=== PATIENT | male | born 1955 | race Caucasian/White ===

== ENCOUNTER → 2019-05-06 11:42 | Outpatient (CLI) | payer MEDICARE, MEDICAID, SELFPAY ==
--- NOTE | 2019-05-06 14:06 | NEURO ---
NCS and/or EMG Patient Report Ordering Doctor: Bobby Saleh DATE OF SERVICE: 05/06/19 Jean-Paul Cuellar is a 63-year-old male presents for electrodiagnostic testing of the lower limbs. He reports pain in both feet. Electrodiagnostic findings: Peroneal motor nerve demonstrates normal distal latency, amplitude and conduction velocity bilaterally. Normal tibial motor response bilaterally sensory responses are within normal limits F waves are normal. Borderline prolonged H reflex bilaterally. On needle EMG, all muscles tested in the lower limbs showed no evidence of denervation with normal motor unit action potentials. Electrodiagnostic impression: This is a normal electrodiagnostic study in the lower limbs. There is no electrodiagnostic evidence for peripheral neuropathy, including tarsal tunnel syndrome. There is no electrodiagnostic evidence for lumbosacral radiculopathy.
== END ==
PROVIDERS: Referring Provider Podiatrist; Visit Provider Podiatrist
DX: G62.9 Polyneuropathy, unspecified (principal); M54.10 Radiculopathy, site unspecified; M79.672 Pain in left foot; M79.671 Pain in right foot
CPT/HCPCS: 95886; 95912

== ENCOUNTER → 2021-04-10 06:33 | Outpatient (CLI) | payer MEDICARE, MEDICAID, SELFPAY ==
--- NOTE | 2021-04-10 06:34 | CT_ITS ---
STUDY: CT MAXILLOFACIAL SINUSES REASON FOR EXAM: Male, 65 years old. SINUSITIS RADIATION DOSAGE (If Supplied By Facility): CTDIvol = ( 33.06 ) mGy, DLP = ( 784.26 ) mGycm TECHNIQUE: The patient was scanned in a multi detector CT scanner. High resolution axial imaging was performed without the administration of intravenous contrast material. Sagittal and coronal images were reconstructed. Individualized dose optimization techniques were used for this CT. COMPARISON: None. FINDINGS: FRONTAL SINUSES: Mucosal thickening of the frontal sinuses. ETHMOIDAL SINUSES: Partial opacification of the ethmoid sinuses bilaterally. MAXILLARY SINUSES: There is opacification of both maxillary sinuses. SPHENOIDAL SINUSES: Normal aeration, without mucosal inflammatory disease. The ostiomeatal complexes is compromised due to the mucosal hypertrophy. Normal bilateral middle turbinates. There is hypertrophy of the left inferior nasal turbinate. There is a left sided nasal septal deviation with a left sided nasal septal spur. There is patency of the bilateral nasal airways. The visualized osseous structures are normal. The visualized bilateral orbital contents are normal. CT/Sinus/Facial Bone IMPRESSION: Opacification of both maxillary sinuses with the compromise of the ostiomeatal complex is bilaterally due to mucosal hypertrophy. Partial opacification of the ethmoid sinuses as well as mucosal thickening of the frontal sinus. Nasal septal deviation towards the left side of the midline. Electronically Signed: Delmar Madera MD at 9:23 EDT , Service support ,
== END ==
PROVIDERS: PCP Nurse Practitioner Family; Referring Provider Otolaryngology; Visit Provider Otolaryngology
DX: J32.8 Other chronic sinusitis (principal)
CPT/HCPCS: 70486

== ENCOUNTER → 2021-05-12 16:45 | Outpatient (CLI) | payer MEDICARE, MEDICAID, SELFPAY | PROVIDERS: PCP Nurse Practitioner Family; Visit Provider Otolaryngology | DX: Z03.818 Encounter for observation for suspected exposure to other biological agents ruled out (principal) | CPT/HCPCS: 87635; U0005; U0003 ==

== ENCOUNTER 2022-10-23 09:23 | Emergency (ER) | payer MEDICARE, MEDICAID, SELFPAY ==
[2022-10-23 09:24] VITALS: BP 132/59; PULSE 128; RESP 18; TEMP 36.1; O2SAT 98; BMI 36.4
--- NOTE | 2022-10-23 10:20 | CT_ITS ---
STUDY: CT ABDOMEN AND PELVIS WITHOUT CONTRAST REASON FOR EXAM: Male, 66 years old. Right flank pain. RADIATION DOSAGE (If Supplied By Facility): CTDIvol = ( 22.06 ) mGy, DLP = ( 1190.40 ) mGycm TECHNIQUE: Transaxial images were obtained from the dome of the diaphragm to the symphysis pubis without oral contrast, and without intravenous contrast. Sagittal and coronal images were reconstructed. Individualized dose optimization techniques were used for this CT. COMPARISON: None. FINDINGS: The visualized lung bases are unremarkable. Coronary artery calcification. There is decreased attenuation of the liver consistent with steatosis. Normal gallbladder and extrahepatic biliary system. Normal spleen. Normal pancreas. Normal bilateral adrenal glands. Normal right kidney. Normal left kidney. Normal visualized stomach. Normal small intestine. There are scattered colonic diverticula consistent with diverticulosis. The appendix is visualized and appears normal. There is scattered atherosclerotic calcification of the abdominal aorta, without a demonstrated aneurysm. Normal inferior vena cava. Normal retroperitoneum. Normal urinary bladder. There are prostatic calcifications. Normal abdominal wall. There are mild degenerative changes of the visualized lumbar spine. CT/Abdomen/Pelvis without Cont IMPRESSION: Fatty infiltration of the liver. Electronically Signed: Delmar Madera MD at 12:32 EST ,
[2022-10-23] MEDS: 0.9% Normal Saline 1,000 ML 1000 ML IV (10:35)
[2022-10-23 10:41] LABS: Bacteria 0 SEEN /hpf (None Seen); Mucous, Urine 0 SEEN /hpf (<or=2+); Red Blood Cells-Urine 0 SEEN /hpf (0-5); Squamous Epithelial Cells - UA 0 SEEN /hpf (0-5); White Blood Cells 0 SEEN /hpf (0-5)
[2022-10-23 10:43] LABS: Absolute Lymphocyte Count 2.18 X10^3/uL (0.83-4.51); Absolute Neutrophil Count 4.4 X10^3/uL (2.0-7.7); Basophil# 0.07 X10^3/uL; Basophil% 0.9 % (0-1); Eosinophil# 0.46 X10^3/uL; Hematocrit 47.1 % (40-54); Hemoglobin 16.1 g/dL (13.0-16.5); Lymphocyte # 2.18 X10^3/ul (0.83-4.51); Lymphocyte % 28.4 % (19-41); Mean Corp Hgb Conc 34.2 g/dL (32-36); Mean Corpuscular Hgb 31.8 pg (27.0-32.0); Mean Corpuscular Volume 92.9 fL (80-94); Mean Platelet Vol. 9.7 fl (6.2-12.0); Monocyte# 0.53 X10^3/uL; Monocyte% 6.9 % (0-10); NRBC Flagged by Analyzer 0 % (0-5); Neutrophil % 57.4 % (47-70); Platelet Count 189 K/mm3 (150-450); RBC Distribution Width CV 15.2 % (11.6-14.6); RBC Distribution Width SD 51.4 fl (35.1-43.9); Red Blood Count 5.07 M/mm3 (4.6-6.2); White Blood Count 7.7 K/mm3 (4.4-11.0)
[2022-10-23 10:45] LABS: Color, Urine Yellow (Yellow); Glucose, Dipstick Normal (Normal); Ketone-Dipstick Negative (Negative); Leukocyte Esterase-Dipstick Negative /ul (Negative); Nitrite-Dipstick Negative (Negative); Occult Blood-Urine Negative /ul (Negative); Protein-Dipstick 15 mg/dl (Negative); Urine Bilirubin Dipstick Negative (Negative); Urine Clarity Clear (Clear); Urine Urobilinogen Normal (Normal)
[2022-10-23 10:51] LABS: AST(SGOT) 37 U/L (15-37); Alanine Aminotransfer ALT/SGPT 47 U/L (16-61); Albumin, Serum 4.1 g/dL (3.2-5.0); Alkaline Phosphatase 62 U/L (45-117); Anion Gap 8 (5-15); BUN 22 mg/dL (7-18); BUN/Creat Ratio 19.3 RATIO (10-20); Calcium,Total 9.6 mg/dL (8.5-10.1); Chloride 106 mmol/L (98-107); Creatinine, Serum 1.14 mg/dL (0.70-1.30); EST Glomerular Filtration Rate 68 mL/min (>60); Est Glom Filt Rate - Afr Amer 82 mL/min (>60); Estimated Creatinine Clearance 66.05 ml/min; Globulin 4.2 g/dL (2.2-4.2); Glucose 141 mg/dL (74-106); Lipase 231 U/L (73-393); Protein, Total 8.3 g/dL (6.4-8.2); Sodium Level 139 mmol/L (136-145)
[2022-10-23 11:51] VITALS: BP 117/63; PULSE 74; RESP 14; O2SAT 98
--- NOTE | 2022-10-23 12:08 | EDS_ITS ---
HPI History of Present Illness Chief Complaint: Flank Pain Informant: patient Onset/Context/Timing Onset: Weeks (1) Context: Gradual Onset Timing: Continuous Quality: Stabbing Location: Right lower abdomen and right flank Worsened by: Movement, coughing Relieved by: Certain positions Narrative Narrative: This with right-sided abdominal and flank pain that began 1 week ago. Patient states it began gradually. Patient states it has been constant for the past week. Patient describes the pain as stabbing. Patient states the pain is worse with certain movements and with coughing. Patient states it is better with certain positions. Patient denies any fevers or chills. Patient admits to nausea but denies any vomiting. Patient denies any diarrhea, melena, or hematochezia. Patient denies any dysuria or hematuria. PFSH PFS Medical History Breast mass in male Diabetes mellitus Essential (primary) hypertension Gout Gynecomastia, male Hyperlipidemia Obesity Tobacco abuse Home Medications allopurinol 300 mg tablet 300 mg PO DAILY 03/30/22 [History Last Taken Unknown] lisinopril 20 mg-hydrochlorothiazide 12.5 mg tablet 1 tab PO DAILY 03/30/22 [History Last Taken Unknown] Allergy/AdvReac Type Severity Reaction Status Date / Time [id number] Reductase AdvReac Unknown bilateral Verified 04/04/22 14:30 Inhibitor hand pain Family History Father CAD (coronary artery disease), Onset Age: 49 CABG Myocardial infarction, Onset Age: 49 Other Heart disease Social History Smoking Status: Current some day smoker tobacco type: cigarettes alcohol intake: current alcohol intake frequency: a few times a week Alcohol type: hard liquor caffeine: Yes Type: coffee Number of servings: 3 ROS ROS ED Constitutional Constitutional ED: Denies chills or fever(s) Eyes Eyes: Denies blurry vision or change in vision ENT ENT ED: Denies rhinorrhea or sore throat Cardiovascular Cardiovascular: Denies chest pain or palpitations Respiratory/Chest Respiratory/Chest: Denies cough or dyspnea Gastrointestinal Gastrointestinal: Reports abdominal pain and nausea; Denies vomiting Genitourinary Genitourinary ED: Denies dysuria or hematuria Musculoskeletal Musculoskeletal: Reports back pain; Denies neck pain Integumentary Denies abscess or rash Neurologic Neurologic: Denies headache(s) or weakness Allergic/Immunologic Allergic/Immunologic ED: Denies mouth swelling or urticaria EXAM Physical Exam Const Vital Signs: 10/23/22 09:24 10/23/22 09:54 10/23/22 11:51 Temperature 96.9 F L Temperature Source Temporal Pulse Rate 128 H 74 Respiratory Rate 18 14 Respiratory Pattern Normal Blood Pressure 132/59 H 117/63 Blood Pressure Mean 83 81 Pulse Ox 98 98 Oxygen Delivery Method Room Air Room Air 10/23/22 13:15 Temperature Temperature Source Pulse Rate 68 Respiratory Rate 18 Respiratory Pattern Blood Pressure 112/71 Blood Pressure Mean 84 Pulse Ox 98 Oxygen Delivery Method Positive well nourished and well developed General Appearance ED: well developed HEENT Reports moist mucous membranes Neck supple and no JVD Resp normal respiratory effort and clear to auscultation bilaterally Cardio regular rate, regular rhythm and no murmurs GI normal to inspection, nondistended, normoactive bowel sounds Palpation: soft and tender RLQ (Mild); Negative for guarding or rebound tenderness present Back/Spine General Back: CVA tenderness right Extremity normal to inspection General Extremety ED: Negative for edema or tenderness General Extremity: Negative for edema Neuro oriented x3, CN's II-XII intact bilaterally and no sensory deficits noted Sensorium / Orientation: alert Motor Exam: strength 5/5 throughout Psych mental status grossly normal Skin no rashes or lesions noted MDM MDM MDM Narrative Medical decision making narrative: Differential diagnose includes appendicitis, right ureteral calculus, mesenteric adenitis, colitis, pancreatitis, pyelonephritis, and gastroenteritis. CBC will be obtained to assess for leukocytosis and anemia. Comprehensive metabolic profile will be obtained to assess for electrolyte abnormality, renal function, and hepatic function. Lipase will be obtained to assess for pancreatitis. Urinalysis will be obtained to assess for urinary tract infection and hematuria. CT scan of the abdomen pelvis will be obtained to assess for appendicitis and ureteral calculus. Lab Data Attestation: I reviewed the patient's lab results. Lab results narrative: CBC was reviewed and was within normal limits. Comprehensive metabolic profile was reviewed and was essentially within normal limits. Lipase was reviewed and was normal. Urinalysis was reviewed and does not show any evidence of urinary tract infection or hematuria. Labs: Laboratory Results - last 24 hr 10/23/22 10/23/22 10/23/22 10:10 10:10 10:30 WBC 7.7 RBC 5.07 Hgb 16.1 Hct 47.1 MCV 92.9 MCH 31.8 MCHC 34.2 RDW Std Deviation 51.4 H RDW Coeff of Jorge Luis 15.2 H Plt Count 189 MPV 9.7 Immature Gran % (Auto) 0.400 Neut % (Auto) 57.4 Lymph % (Auto) 28.4 [place] % (Auto) 6.9 Eos % (Auto) 6.0 H Baso % (Auto) 0.9 Absolute Neuts (auto) 4.4 Absolute Lymphs (auto) 2.18 Nucleated RBC % 0 Sodium 139 Potassium 4.0 Chloride 106 Carbon Dioxide 25.0 Anion Gap 8 BUN 22 H Creatinine 1.14 Estim Creat Clear Calc 66.05 Est GFR (MDRD) Af Amer 82 Est GFR (MDRD) Non-Af 68 BUN/Creatinine Ratio 19.3 Glucose 141 H Calcium 9.6 Total Bilirubin 0.60 AST 37 ALT 47 Alkaline Phosphatase 62 Total Protein 8.3 H Albumin 4.1 Globulin 4.2 Albumin/Globulin Ratio 1.0 Lipase 231 Urine Color Yellow Urine Clarity Clear Urine pH 6.0 Ur Specific [place] 1.020 Urine Protein 15 H Urine Glucose (UA) Normal Urine Ketones Negative Urine Occult Blood Negative Urine Nitrite Negative Urine Bilirubin Negative Urine Urobilinogen Normal Ur Leukocyte Esterase Negative Urine RBC 0 SEEN Urine WBC 0 SEEN Ur Squamous Epith Cells 0 SEEN Urine Bacteria 0 SEEN Urine Mucus 0 SEEN Radiography Diagnostic Testing: Clinical Impression(s) from Imaging Studies Abdomen/Pelvis CT 10/23/22 10:20 IMPRESSION: Fatty infiltration of the liver. Electronically Signed: Delmar Madera MD at 12:32 EST , CT scan of the abdomen pelvis was obtained. There is fatty infiltration of the liver. There is no evidence of bowel obstruction or perforation. There is no ureteral calculus noted. This was interpreted by the radiologist and was also independently reviewed by myself. Treatment and Re-Evaluation Narrative: Patient was given IV fluids, morphine, and Zofran. Patient is feeling better on reevaluation. Patient was advised of his findings. Patient was instructed to take Tylenol or ibuprofen as needed for pain. Patient was instructed to follow- up with his primary care physician in 5 to 7 days. Patient was instructed to drink plenty of fluids. Patient understood and was agreeable with the plan. All questions were answered. Discharge Plan Triage Chief Complaint: Flank Pain ED Provider: Adryan Alas Dx/Rx/DC Orders Clinical Impression: Acute right flank pain, Obesity Instructions: ED Flank Pain, Uncertain Cause Prescriptions: No Action allopurinol 300 mg tablet 300 mg PO DAILY lisinopril-hydrochlorothiazide 20-12.5 mg tablet 1 tab PO DAILY Primary Care Provider: Chi Quinn NP Referrals: Chi Quinn EN[employer] EFFICIENCY FINANCE MANAGER, ENERGY EFFICIENCY FINANCE MANAGER-C [Primary Care Provider] - 5-7 Days Disposition Disposition: Home, Self Care
[2022-10-23 13:15] VITALS: BP 112/71; PULSE 68; RESP 18; O2SAT 98
[2022-10-23 14:31] VITALS: BP 113/72; PULSE 79; RESP 18; O2SAT 97
== END 2022-10-23 14:31 | disposition home or self-care (01) ==
PROVIDERS: Emergency Provider Emergency Medicine; PCP Nurse Practitioner Family; Visit Provider Emergency Medicine
DX: R10.31 Right lower quadrant pain (principal); E66.9 Obesity, unspecified; F17.210 Nicotine dependence, cigarettes, uncomplicated
CPT/HCPCS: 74176; 80053; 81001; 83690; 85025; 96360; 96361; 99283; J7030; A4216; J2405